=== PATIENT | male | born 1980 | race Two or more races ===

== ENCOUNTER 2019-01-11 07:59 | Emergency (ER) | payer MEDICAID ==
[~2019-01-11] VITALS: Ht 165.1 cm; Wt 113.6 kg
[~2019-01-11 07:59] MED LIST: FAMO-115 CORPAK; NO HOME MEDS
[2019-01-11] MEDS ORDERED: CIPR10DR RIGHT EAR (08:14)
== END 2019-01-11 08:31 | disposition home or self-care (01) ==
LOC: ER 08:00
DX: H60.91 Unspecified otitis externa, right ear (principal); Z79.899 Other long term (current) drug therapy
CPT/HCPCS: 99283